=== PATIENT | female | born 1950 | race Caucasian/White ===

== ENCOUNTER 2023-09-25 10:26 | Emergency (ER) | payer MEDICARE, SELFPAY ==
[2023-09-25] VITALS (8 sets, daily range): BP systolic 152–168; BP diastolic 70–98; PULSE 72–91; RESP 16–18; TEMP 36.4–36.8; O2SAT 94–100
--- NOTE | ~2023-09-25 | CT_ITS ---
EXAMINATION: CT abdomen pelvis w con DATE: 09/25/2023 11:42 INDICATION: Lower abdominal pain radiating to back. Tenderness to palpation, left and right lower trevor drants TECHNIQUE: Computed tomography (CT) of the abdomen and pelvis was performed with 100 CC Omnipaque 350 intravenous contrast. Automated exposure control and iterative reconstruction technique were employe d. Exam dose: 710.15 mGy-cm total exam DLP. COMPARISON: None. FINDINGS: Calcified left lower lobe pulmonary granuloma. The lung bases are clear of infiltrate or co nsolidation. Heart size within normal limits. Coronary artery calcifications. Small sliding hiatal hernia. Status post cholecystectomy. No unusual bile duct dilatation. No pancreatic duct dilatation. No hepatic, splenic, pancreatic, adrenal or renal space occupying mass lesion is evident. No urinary tract calculus or hydroureteronephrosis. There is a minimal amount of air in the nondependent aspect of the urinary bladder. The bladder, uter us and adnexal areas otherwise appear unremarkable. There is atherosclerotic calcification but normal caliber of the abdominal aorta. No intraperitoneal or retroperitoneal or pelvic mass lesion or adenopathy or ascites. Normal appendix. Diverticulosis of the colon; no CT evidence of diverticulitis. No bowel obstruction, bowel wall thick ening, pneumatosis or intraperitoneal free air. Very small fat-containing umbilical hernia. Diffuse idiopathic skeletal hyperostosis of the thoracic spine. Multilevel moderate to moderately sev ere degenerative disc disease of the lumbar spine. IMPRESSION: Small sliding hiatal hernia Status post cholecystectomy Normal appendix Diverticulosis of the colon; no CT evidence of diverticulitis Small amount of air in the urinary bladder submitted if no recent instrumentation, consider possible infection Reviewed, dictated and finalized at [facility]. Reviewed, dictated and finalized at [facility]. IMPRESSION: Small sliding hiatal hernia Status post cholecystectomy Normal appendix Diverticulosis of the colon; no CT evidence of diverticulitis Small amount of air in the urinary bladder submitted if no recent instrumentati on, consider possible infection
--- NOTE | 2023-09-25 10:39 | ED.BACK ---
HPI - Back Pain/Injury General Chief Complaint: Abdominal Pain Stated Complaint: back pain Time Seen by Provider: 09/25/23 10:37 Source: patient and family () Mode of arrival: ambulatory Limitations: no limitations History of Present Illness HPI Narrative: Patient presents with right-sided low abdominal pain. She noticed it when she bent over a few days ago and it radiates to her back. (Note, not primarily back pain as initially reported from triage) notes that she complained of pain well being transported in the car and traveling over any bump. History of a cholecystectomy, unknown if she still has her appendix. History of a stroke. She had previously undergone colonoscopy is but more recently, given difficulties ambulating easily to the bathroom with colonoscopy prep, had undergone Cologuard for colon cancer screening. No fever. Ate today. No hematuria. No nausea/vomiting. Related Data Home Medications Medication Instructions Recorded Confirmed acetaminophen 500 mg tablet 500 mg PO Q6H PRN 10/02/20 04/21/23 (Tylenol Extra Strength) gabapentin 600 mg tablet 600 mg PO DAILY 10/02/20 04/21/23 aspirin 81 mg capsule 81 mg PO DAILY 04/22/22 04/21/23 atorvastatin 80 mg tablet 80 mg PO DAILY 04/22/22 04/21/23 glipizide 2.5 mg-metformin 250 mg 1 tablet PO DAILY 04/22/22 04/21/23 tablet guanfacine 2 mg tablet 2 mg PO DAILY 04/22/22 04/21/23 lisinopril 40 mg tablet 40 mg PO DAILY 04/22/22 04/21/23 Allergies Allergy/AdvReac Type Severity Reaction Status Date / Time codeine Allergy Unknown Unknown Verified 04/21/23 09:09 metformin AdvReac Unknown Unknown Verified 09/25/23 10:46 morphine AdvReac Unknown Unknown Verified 09/25/23 10:46 COUNT INCLUDES THE [facility] Past Medical History Medical History (Updated 09/26/23 @ 00:00 by Background Daemon) Degenerative arthritis of left knee History of CVA (cerebrovascular accident) approx 2018; residual R sided weakness Secondary osteoarthritis, left ankle and foot (07/26/15) Surgical History Surgical History (Updated 09/26/23 @ 00:00 by Background Daemon) H/O arthrodesis Left subtalar arthrodesis performed 07/08/15 History of cholecystectomy History of colonoscopy Family History Family History Other Diabetes mellitus Family history of arthritis Family history of heart disease in male family member before age 55 Family history of malignant neoplasm Hypertension Social History Social History (Updated 09/26/23 @ 09:36 by Deanna Hurst MD) Smoking status: Never smoker Living arrangements: with family Additional living arrangements comments: Exam Narrative: GENERAL: Well-appearing, well-nourished, and in no acute distress. HEAD: Normocephalic, atraumatic. EYES: Non injected, non icteric ENT: Nares clear, no rhinorrhea or epistaxis. NECK: Supple. CHEST: Speaking in full sentences. No respiratory distress. HEART: Regular rate and rhythm. . ABDOMEN: Soft, nondistended. Mild TTP in RLQ. Also TTP in LLQ. No rigidity/guarding. Not peritoneal. /Back: No CVA tenderness bilaterally EXTREMITIES: Normal range of motion. No edema. SKIN: Warm, dry, no rash. NEURO: No focal deficits. Alert and oriented x3. PSYCH: Normal mood and affect. Course Vital Signs Vital signs: Vital Signs Temperature 98.2 F 09/25/23 10:36 Pulse Rate 91 09/25/23 10:36 Respiratory Rate 18 09/25/23 10:36 Blood Pressure 168/98 H 09/25/23 10:36 Pulse Oximetry 94 09/25/23 10:36 Temperature 97.7 F 09/25/23 15:02 Pulse Rate 74 09/25/23 15:02 Respiratory Rate 16 09/25/23 15:02 Blood Pressure 160/98 H 09/25/23 15:02 Pulse Oximetry 97 09/25/23 15:02 Oxygen Delivery Room Air 09/25/23 11:00 MDM - Back Pain/Injury MDM Narrative Medical decision making narrative: Patient presents with low abdominal pain. She initially noticed it in her RLQ but also has some LLQ TTP.
[2023-09-25] MEDS: SODIUM CHLORIDE 0.9% IV 1,000 ML 999 ML IV CONT (11:17)
[2023-09-25 11:20] LABS: Basophils Percent Auto 0.7 % (0.2-1.2); Eosinophils Absolute Auto 0.2 K/mm3 (0-0.3); Eosinophils Percent Auto 2.5 % (0-4.4); Hematocrit 39.4 % (37.0-47.0); Hemoglobin 13.4 g/dL (12.0-15.0); Immature Granulocyte Absolute 0.01 K/mm3 (0.00-0.031); Immature Granulocyte Percent A 0.2 % (0-0.5); Lymphocytes Absolute Auto 1.93 K/mm3 (0.9-3.2); Lymphocytes Percent Auto 32.4 % (18.3-44.2); Mean Corpuscular Hemoglobin 31.8 pg (26-34); Mean Corpuscular Volume 93.4 fl (80-100); Mean Platelet Volume 9.3 fl (7.4-10.4); Monocytes Absolute Auto 0.7 K/mm3 (0.1-0.6); Monocytes Percent Auto 11.2 % (2.6-8.5); Neutrophils Absolute Auto 3.2 K/mm3 (1.3-6.7); Platelet Count Result 213 k/mm3 (150-375); Red Blood Count 4.22 M/mm3 (4.2-5.4); Red Cell Distribution Width 12.5 % (11.5-14.5)
[2023-09-25 11:30] LABS: Alanine Aminotransferase 23 U/L (6-35); Alkaline Phosphatase 69 U/L (38-126); Anion Gap 11 mmol/L (4-12); Aspartate Amino Transferase 30 U/L (14-36); Bilirubin,Total 0.7 mg/dL (0.2-1.3); Blood Urea Nitrogen 22 mg/dL (7-17); Calcium 10.1 mg/dL (8.4-10.2); Carbon Dioxide 22 mmol/L (22-30); Chloride 102 mmol/L (98-107); Estimated CRCL calculation 46 ml/min; Estimated Glomerular Filt Rate > 60; Glucose 186 mg/dL (65-110); Lactic Acid Reflex 1.4 mmol/L (0.7-2.0); Lipase 164 U/L (23-300); Potassium 4.3 mmol/L (3.4-5.0); Sodium 135 mmol/L (137-145)
[2023-09-25 12:02] LABS: Estimated CRCL calculation 38 ml/min; Estimated Glomerular Filt Rate 49
[2023-09-25] MEDS: PANTOPRAZOLE 40 MG TABLET PO (12:31)
[2023-09-25] MEDS: ACETAMINOPHEN 325 MG TABLET 650 MG PO (12:31)
[2023-09-25 13:31] LABS: Appearance Urine Clear (Clear); Bacteria Urine 4+ /hpf; Bilirubin Urine Negative (Negative); Blood Urine Negative (Negative); Color Urine Yellow (Yellow); Glucose Urine UA Negative (Negative); Ketones Urine Negative (Negative); Leukocyte Esterase Ur 2+ LEU/UL (Negative); Nitrate Urine Positive (Negative); Non Pathogenic Casts 0-2; Protein Urine Negative (Negative); RBC Urine 0-2 /hpf (0-2); Squamous Epithelial Cell Urine None Seen /hpf (Few); Urobilinogen Urine 0.2 mg/dL (<2.0); WBC Urine 21-50 /hpf (0-3); pH Urine 6.5 (5.0-9.0)
[2023-09-25 14:02] LABS: Specific Grav Ur 1.033 (1.001-1.035)
[2023-09-25 14:03] LABS: Add Urine Microscopic? YES
== END 2023-09-25 15:24 | disposition home or self-care (01) ==
PROVIDERS: Emergency Provider Student in an Organized Health Care Education/Training Program; PCP Internal Medicine
DX: N39.0 Urinary tract infection, site not specified (principal); K44.9 Diaphragmatic hernia without obstruction or gangrene; K57.90 Diverticulosis of intestine, part unspecified, without perforation or abscess without bleeding; R79.89 Other specified abnormal findings of blood chemistry; I69.951 Hemiplegia and hemiparesis following unspecified cerebrovascular disease affecting right dominant side; M19.272 Secondary osteoarthritis, left ankle and foot; M17.12 Unilateral primary osteoarthritis, left knee; Z90.49 Acquired absence of other specified parts of digestive tract; Z79.82 Long term (current) use of aspirin; Z79.84 Long term (current) use of oral hypoglycemic drugs; Z79.899 Other long term (current) drug therapy
CPT/HCPCS: 36415; 74177; 80053; 81001; 83605; 83690; 85025; 87077; 87086; 87088; 87186; 96361; 96365; 99284; A9270; J0696; J7030; Q9967